=== PATIENT | female | born 1965 | race Caucasian/White ===

== ENCOUNTER → 2022-04-05 14:03 | Outpatient (CLI) | payer OTHER, SELFPAY | PROVIDERS: Family Provider Family Medicine; PCP Family Medicine; Referring Provider Internal Medicine; Visit Provider Internal Medicine | DX: M06.09 Rheumatoid arthritis without rheumatoid factor, multiple sites (principal); Z79.52 Long term (current) use of systemic steroids; Z13.820 Encounter for screening for osteoporosis | CPT/HCPCS: 77080 ==

== ENCOUNTER 2022-12-27 18:37 | Emergency (ER) | payer OTHER, SELFPAY ==
[2022-12-27] VITALS (9 sets, daily range): BP systolic 151–179; BP diastolic 69–79; PULSE 64–75; RESP 18–27; TEMP 36.8; O2SAT 98–100; BMI 39.5
--- NOTE | 2022-12-27 18:54 | ED_ITS ---
HPI - Allergic Reaction General Chief complaint: Allergic Reaction Stated complaint: Allergic reaction bee sting Time Seen by Provider: 12/27/22 18:48 Source: patient, EMS, RN notes reviewed and old records reviewed Mode of arrival: EMS (airlift) Limitations: no limitations History of Present Illness HPI narrative: [age] year old female with history of hypertension, rheumatoid arthritis on 4 mg prednisone daily. 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 States she was stung on her left upper extremity. She states she is had reactions before but not like this she went she took oral Benadryl right away and put an ice pack on the area and states it soon as she sat on the table she felt tingling and swelling of her tongue, felt tight in her airway and her chest. Patient states she felt nauseated but did not have any vomiting. She did feel like her face was red and going to explode. She also developed a rash all over her body. She denies any syncope. Denies any chest pain, she states her symptoms have resolved. She does feel shaky right now. She denies any diarrhea constipation, no urinary symptoms. Patient states she took 25 mg of Benadryl orally and used an EpiPen that in July. She seemed states it seemed to be very helpful immediately thereafter. She lives on [facility] and was airlifted over because of use of EpiPen. She states daily medications include lisinopril, eczema for her rheumatoid and 4 mg daily of prednisone. She states she is had a cholecystectomy. No known drug allergies. No tobacco, alcohol or illicit regularly. Related Data Home Medications Medication Instructions Recorded Confirmed Control Pill ( Control) 1 tab PO EVERY DAY ##0 09/13/09 Previous Rx's Medication Instructions Recorded epinephrine 0.3 mg/0.3 mL 0.3 mg (0.3 mL) IM Q5-15M PRN 12/27/22 injection, auto-injector (EpiPen) anaphylaxis #2 ea prednisone 20 mg tablet 40 mg PO DAILY #6 tabs 12/27/22 Allergies Allergy/AdvReac Type Severity Reaction Status Date / Time No Known Drug Allergies Allergy Unknown Unverified 08/06/17 13:09 Review of Systems Review of Systems ROS Unobtainable: All systems reviewed & are unremarkable except as noted in HPI and below Patient History Social History Smoking Status: Never smoker Exam Narrative Exam Narrative: GEN: well nourished, well appearing female, alert and oriented x 3, patient appears to be in mild distress. HEENT: Atraumatic, pupils are equal round reactive to light, extraocular movements are intact, nares are clear, there is no conjunctival pallor. Throat is clear without any exudates, erythema, tonsillar enlargement or uvular deviation HEART: Regular rate and rhythm without murmur, clicks, rubs. No carotid bruits, pulses are equal in upper and lower extremities LUNGS:Lungs clear to auscultation, no wheezes, rales, crackles, chest moves symmetrically, no tachypnea or accessory muscle use ABD:bowel sounds normal, soft, non-tender, no guarding, rebound, rigidity, no masses noted, no hepatosplenomegaly :No CVA tenderness MSCL: Non-tender, no muscle atrophy, muscles strength 5/5 upper and lower extremities, full range of motion. NEURO:CN 2-12 intact, sensation normal SKIN: Patient does have erythematous patchy rash on her upper extremities bilaterally. Initial Vital Signs Initial Vital Signs: Vital Signs Pulse Rate 71 12/27/22 18:45 Respiratory Rate 27 H 12/27/22 18:45 Pulse Oximetry 100 12/27/22 18:45 Course Orders Ordered: Discontinued Medications Sodium Chloride (Normal Saline 0.9%) 1,000 mls @ 1,000 mls/hr IV BOLUS ONE Stop: 12/27/22 19:53 Last Infusion: 12/27/22 20:08 Dose: 0 mls/hr Documented By: Admin: 12/27/22 19:01 Dose: 1,000 mls/hr Documented By: OC Methylprednisolone (Methylprednisolone 125 Mg/2 Ml Vial) 125 mg IV NOW ONE Stop: 12/27/22 18:55 Last Admin: 12/27/22 19:01 Dose: 125 mg Documented By: OC Vital Signs Vital signs: Vital Signs - 8 hr 12/27/22 18:53 12/27/22 18:45 12/27/22 18:47 Temperature 98.2 F Pulse Rate 67 71 72 Respiratory Rate 22 27 H 19 Blood Pressure 166/74 H Pulse Oximetry 98 100 100 Oxygen Delivery Method Room Air 12/27/22 18:47 12/27/22 18:53 12/27/22 18:53 Temperature Pulse Rate 73 Respiratory Rate 22 Blood Pressure 165/75 H 166/74 H Pulse Oximetry 100 Oxygen Delivery Method 12/27/22 19:00 12/27/22 19:01 12/27/22 19:01 Temperature Pulse Rate 69 69 Respiratory Rate 20 Blood Pressure 179/79 H Pulse Oximetry 100 99 Oxygen Delivery Method Room Air MDM - Allergic Reaction MDM Narrative Medical decision making narrative: 57-year-old female with anaphylactic type reaction to which he describes as a yellow jacket. Patient states she is had localized reactions she took oral Benadryl and put ice in the area but started to have swelling of her tongue airway, rash and nausea and tightness in her chest. She used an EpiPen which helped her symptoms. She did not have any additional medications in route. Was given an additional 125 of Solu-Medrol as well as L of fluid. Patient is feeling shaky at this point. She states this is the 1st time she is ever used an EpiPen. Recheck patient has continued to feel improved since. She no longer feels shaky. It has been 3 hours since she administered her EpiPen with no recurrent episodes. Patient feels comfortable returning home. She has 1 EpiPen left over and refills at [facility] on [address]. We will send a prescription for some oral prednisone. Discharge Plan Departure Patient Disposition: Home Clinical Impression: Anaphylaxis Instructions: DI for Anaphylaxis Activity Restrictions/Additional Instructions: Please follow-up or return if any persistent symptoms. Take oral prednisone once daily until gone. You can take Benadryl 1-2 tablets every 6 hours as needed for any mild symptoms. Prescription was sent for prednisone as well as refills for the EpiPen. Please return or call 911 if you have recurrent swelling of your throat, airway, chest pain or tightness, nausea or vomiting, rash, diarrhea or other new or concerning changes. Prescriptions: New prednisone 20 mg tablet 40 mg PO DAILY Qty: 6 0RF epinephrine [EpiPen] 0.3 mg/0.3 mL auto-injector 0.3 mg IM Q5-15M PRN (Reason: anaphylaxis) Qty: 2 0RF Rx Instructions: do not exceed 3 doses per episode No Action Control Pill ( Control) 1 tab PO EVERY DAY Qty: 0 Referrals: Jamil Brooks MD [Primary Care Provider] - Stand Alone Forms: Patient Portal/API
[2022-12-27] MEDS: SODIUM CHLORIDE 0.9% 1,000 ML 1000 ML IV (19:01)
[2022-12-27] MEDS: methylPREDNISolone 125 MG/2 ML VIAL IV (19:01)
== END 2022-12-27 20:11 | disposition home or self-care (01) ==
PROVIDERS: Emergency Provider Emergency Medicine; Family Provider Family Medicine; PCP Family Medicine
DX: T78.2XXA Anaphylactic shock, unspecified, initial encounter (principal); T63.461A Toxic effect of venom of wasps, accidental (unintentional), initial encounter
CPT/HCPCS: 96374; 99283; 99284; J2930